=== PATIENT | male | born 1955 | race African-American/Black ===

== ENCOUNTER 2018-03-27 10:54 | Inpatient (IN) ==
[2018-03-27] MEDS ORDERED: ONDANSETRON ODT 4 MG TABLET PO STA (13:18)
[2018-03-27] MEDS ORDERED: ONDANSETRON ODT 4 MG TABLET PO ONE (13:21)
[2018-03-27 14:15] LABS: Apearance,Urine CLEAR (Clear); Bacteria,Urine Occasional /HPF (Few); Bilirubin,Urine Negative (Negative); Blood, Urine Small mg/dL (Negative); Glucose,Urine (UA) 50 mg/dL (Negative); Ketones,Urine Negative (Negative); Mucus,Urine Occasional /LPF (Occasional); Nitrite,Urine Negative (Negative); Protein,Urine 100 MG/DL; RBC,Urine 3 /HPF (0-4); Squamous Epithelial Cell,Urine Occasional /HPF (0-10); Urine Color Yellow (Yellow); Urine Specific Gravity 1.014 (1.001-1.035); Urine Urobilinogen < 2.0 EU/DL (0.2-1.0); WBC,Urine 3 /HPF (0-6)
[2018-03-27 14:17] LABS: Basophils # 0.1 10*3/uL (0.0-0.2); Basophils % 0.3 % (0.0-0.8); Eosinophils # 0.3 10*3/uL (0.0-0.87); Eosinophils % 1.4 % (0.00-10.9); Hematocrit 23.7 VOL% (42.0-52.0); Hemoglobin 8.1 GM/DL (14.0-18.0); Immature Granulocytes Absolute 0.22 #; Lymphocytes # 1.9 10*3/uL (1.4-4.0); Lymphocytes % 8.3 % (21.2-54.2); Mean Corpuscular HGB Conc 34.2 GM/DL (32-36); Mean Corpuscular Hemoglobin 30 PG (27-34); Mean Corpuscular Volume 88.1 FL (87-102); Mean Platelet Volume 10.4 FL (9.6-12.0); Monocytes # 1.4 10*3/uL (0.11-0.8); Platelet Count 426 T/CUMM (130-400); Red Blood Count 2.69 MC/CUMM (3.8-5.5); Red Cell Distribution Width 14.8 % (9.3-17.3); White Blood Count 22.8 T/CUMM (4-12)
[2018-03-27 14:36] LABS: Albumin 2.7 G/DL (3.4-5.0); Bilirubin,Total 0.4 MG/DL (0.2-1.0); Calcium 8.9 MG/DL (8.5-10.1); Osmolality,Calculated 323.8 MOS/KG (273-304); Potassium 4.7 MMOL/L (3.5-5.1); Total Protein 8.2 G/DL (6.4-8.3)
[2018-03-27 14:53] LABS: Band Neutrophils 1 % (0-10); Lymphocytes 8 % (20-55); Platelet Estimate Increased; Segmented Neutrophils 88 % (50-85); Total Cells Counted 100
[2018-03-27 14:54] LABS: Hypochromasia Slight
[2018-03-27 15:39] LABS: Barbiturates Screen,Urine Negative (Negative); Benzodiazepines Screen,Urine Negative (Negative); Cannabinoid Screen,Urine Negative (Negative); Opiate Screen,Urine Negative (Negative); Phencyclidine Screen,Urine Negative (Negative)
[2018-03-27] MEDS ORDERED: diphenhydrAMINE CAP 25 MG CAPSULE PO PRN (16:21)
[2018-03-27] MEDS ORDERED: DOCUSATE SODIUM 100 MG CAPSULE PO PRN (16:21)
[2018-03-27] MEDS ORDERED: SODIUM CHLORIDE 0.9% 1,000 ML IV SCH (16:30)
[2018-03-27 17:25] LABS: Risk Ratio 1.69; Thyroid Stimulating Hormone 1.46 uIU/ml (0.358-3.74); VLDL CHOLESTEROL 18.8 MG/DL
[2018-03-27] MEDS ORDERED: ONDANSETRON 4 MG/2 ML VIAL IV STA (17:31)
[2018-03-27] MEDS ORDERED: ONDANSETRON 4 MG/2 ML VIAL ONE (17:35)
[2018-03-27] MEDS ORDERED: DEXTROSE 50% 25 GM/50 ML VIAL IV PRN (18:53)
[2018-03-27] MEDS ORDERED: GLUCAGON 1 MG VIAL IM PRN (18:53)
[2018-03-27] MEDS: INSULIN REGULAR 100 UNIT/ML SUBCUT SCH (20:01)
[2018-03-27] MEDS: ONDANSETRON 4 MG/2 ML VIAL IV PRN (20:02)
[2018-03-27] MEDS: SODIUM BICARB INJ 100 MEQ in SODIUM CHLORIDE 0.45% 1,000 ML IV SCH (21:20)
[2018-03-27] MEDS: PIPERACILLIN/TAZOBACTAM 3,375 MG in SODIUM CHLORIDE 0.9% 100 ML IV SCH (21:20)
[2018-03-27] MEDS: MORPHINE 4 MG/1 ML VIAL IV PRN (21:25)
[2018-03-27 21:27] LABS: Apearance,Urine CLEAR (Clear); Bilirubin,Urine Negative (Negative); Blood, Urine Small mg/dL (Negative); Glucose,Urine (UA) 50 mg/dL (Negative); Ketones,Urine Negative (Negative); Nitrite,Urine Negative (Negative); Protein,Urine 100 MG/DL; RBC,Urine 3 /HPF (0-4); Squamous Epithelial Cell,Urine Occasional /HPF (0-10); Urine Color Yellow (Yellow); Urine Specific Gravity 1.013 (1.001-1.035); Urine Urobilinogen < 2.0 EU/DL (0.2-1.0); WBC,Urine 4 /HPF (0-6)
[2018-03-28 05:54] LABS: Basophils % 0.2 % (0.0-0.8); Eosinophils # 0.7 10*3/uL (0.0-0.87); Eosinophils % 2.9 % (0.00-10.9); Hematocrit 21.8 VOL% (42.0-52.0); Hemoglobin 7.5 GM/DL (14.0-18.0); Immature Granulocytes Absolute 0.22 #; Lymphocytes # 2.9 10*3/uL (1.4-4.0); Lymphocytes % 12.8 % (21.2-54.2); Mean Corpuscular HGB Conc 34.4 GM/DL (32-36); Mean Corpuscular Hemoglobin 30 PG (27-34); Mean Corpuscular Volume 86.2 FL (87-102); Mean Platelet Volume 10.4 FL (9.6-12.0); Monocytes # 1.3 10*3/uL (0.11-0.8); Monocytes % 5.8 % (1.7-12.7); Neutrophils # 17.7 10*3/uL (1.4-7.4); Neutrophils % 77.3 % (38.7-73.9); Platelet Count 376 T/CUMM (130-400); Red Blood Count 2.53 MC/CUMM (3.8-5.5); Red Cell Distribution Width 14.9 % (9.3-17.3); White Blood Count 22.9 T/CUMM (4-12)
[2018-03-28 06:18] LABS: Hypochromasia 1+; Platelet Estimate Adequate
[2018-03-28 06:30] LABS: Albumin 2.5 G/DL (3.4-5.0); Bilirubin,Total 0.4 MG/DL (0.2-1.0); Calcium 8.6 MG/DL (8.5-10.1); Osmolality,Calculated 323.7 MOS/KG (273-304); Potassium 4.1 MMOL/L (3.5-5.1); Total Protein 7.9 G/DL (6.4-8.3)
[2018-03-28] MEDS: ONDANSETRON 4 MG/2 ML VIAL IV PRN ×2 (07:35→20:24)
[2018-03-28] MEDS: INSULIN REGULAR 100 UNIT/ML SUBCUT SCH ×4 (10:18→20:24)
[2018-03-28] MEDS: PIPERACILLIN/TAZOBACTAM 3,375 MG in SODIUM CHLORIDE 0.9% 100 ML IV SCH (10:19)
[2018-03-28] MEDS: MORPHINE 4 MG/1 ML VIAL IV PRN ×2 (10:26→20:23)
[2018-03-28] MEDS: MEROPENEM 500 MG in SYRINGE 1 EACH IV SCH (10:27)
[2018-03-28] MEDS: PANTOPRAZOLE 40 MG VIAL IV SCH (10:27)
[2018-03-28] MEDS: SODIUM BICARB INJ 100 MEQ in SODIUM CHLORIDE 0.45% 1,000 ML IV SCH (12:51)
[2018-03-28 13:12] LABS: Calcium 8.3 MG/DL (8.5-10.1); Osmolality,Calculated 322.8 MOS/KG (273-304); Potassium 4.1 MMOL/L (3.5-5.1)
[2018-03-29 07:16] LABS: Basophils % 0.2 % (0.0-0.8); Eosinophils # 0.6 10*3/uL (0.0-0.87); Eosinophils % 3.5 % (0.00-10.9); Hematocrit 18.6 VOL% (42.0-52.0); Immature Granulocytes % 1.4 %; Immature Granulocytes Absolute 0.23 #; Lymphocytes # 2.9 10*3/uL (1.4-4.0); Lymphocytes % 17.7 % (21.2-54.2); Mean Corpuscular HGB Conc 34.9 GM/DL (32-36); Mean Corpuscular Hemoglobin 30 PG (27-34); Mean Corpuscular Volume 86.1 FL (87-102); Mean Platelet Volume 10.4 FL (9.6-12.0); Monocytes % 6.2 % (1.7-12.7); Neutrophils # 11.5 10*3/uL (1.4-7.4); Platelet Count 343 T/CUMM (130-400); Red Blood Count 2.16 MC/CUMM (3.8-5.5); Red Cell Distribution Width 15.1 % (9.3-17.3); White Blood Count 16.2 T/CUMM (4-12)
[2018-03-29 07:23] LABS: Hemoglobin 6.5 GM/DL (14.0-18.0)
[2018-03-29 07:43] LABS: Albumin 2.3 G/DL (3.4-5.0); Calcium 7.8 MG/DL (8.5-10.1); Osmolality,Calculated 319.5 MOS/KG (273-304); Potassium 3.8 MMOL/L (3.5-5.1)
[2018-03-29] MEDS ORDERED: EPOETIN ALFA 10,000 UNIT/1 ML VIAL SUBCUT ONE (07:57)
[2018-03-29] MEDS ORDERED: SODIUM CHLORIDE 0.9% 1,000 ML IV PRN (08:01)
[2018-03-29] MEDS: INSULIN REGULAR 100 UNIT/ML SUBCUT SCH ×4 (08:34→21:02)
[2018-03-29 08:35] LABS: Hepatitis A Ab IgM Quant 0.12 Index; Hepatitis A Ab IgM Result Negative (Negative); Hepatitis B Core IgM Quant 0.21 Index; Hepatitis B Core IgM Result Negative (Negative); Hepatitis B Surface Ag Quant < 0.10 Index; Hepatitis B Surface Ag Result Negative (Negative); Hepatitis C Virus Ab Quant 0.21 Index; Hepatitis C Virus Ab Result Negative (Negative)
[2018-03-29 08:37] LABS: Parathyroid Hormone Intact 2334.4 PG/ML (18.4-80.1)
[2018-03-29 08:53] LABS: % Iron Saturation 20.9 % (18-50); Ferritin 1198.7 ng/ml (26-388)
[2018-03-29] MEDS: PANTOPRAZOLE 40 MG VIAL IV SCH (09:59)
[2018-03-29] MEDS: MEROPENEM 500 MG in SYRINGE 1 EACH IV SCH (09:59)
[2018-03-29] MEDS: CALCIUM ACETATE 667 MG CAPSULE PO SCH ×3 (10:00→16:54)
[2018-03-29] MEDS: SODIUM BICARB INJ 100 MEQ in SODIUM CHLORIDE 0.45% 1,000 ML IV SCH ×2 (10:02→21:05)
[2018-03-29] MEDS: ONDANSETRON 4 MG/2 ML VIAL IV PRN ×2 (17:23→21:07)
[2018-03-29] MEDS: MORPHINE 4 MG/1 ML VIAL IV PRN (21:07)
[2018-03-30 05:44] LABS: Basophils # 0.1 10*3/uL (0.0-0.2); Basophils % 0.4 % (0.0-0.8); Eosinophils # 0.6 10*3/uL (0.0-0.87); Eosinophils % 3.7 % (0.00-10.9); Immature Granulocytes % 1.9 %; Immature Granulocytes Absolute 0.31 #; Lymphocytes % 18.8 % (21.2-54.2); Mean Corpuscular HGB Conc 33.3 GM/DL (32-36); Mean Corpuscular Hemoglobin 29 PG (27-34); Mean Platelet Volume 10.3 FL (9.6-12.0); Monocytes # 1.1 10*3/uL (0.11-0.8); Monocytes % 6.9 % (1.7-12.7); Neutrophils % 68.3 % (38.7-73.9); Platelet Count 288 T/CUMM (130-400); Red Blood Count 2.79 MC/CUMM (3.8-5.5); Red Cell Distribution Width 16.3 % (9.3-17.3); White Blood Count 16.2 T/CUMM (4-12)
[2018-03-30 06:23] LABS: Osmolality,Calculated 313.5 MOS/KG (273-304); Potassium 3.9 MMOL/L (3.5-5.1)
[2018-03-30] MEDS: INSULIN REGULAR 100 UNIT/ML SUBCUT SCH ×4 (07:45→20:44)
[2018-03-30] MEDS: PANTOPRAZOLE 40 MG VIAL IV SCH (10:11)
[2018-03-30] MEDS: ONDANSETRON 4 MG/2 ML VIAL IV PRN ×2 (10:13→18:44)
[2018-03-30] MEDS: CALCIUM ACETATE 667 MG CAPSULE PO SCH ×3 (10:14→18:40)
[2018-03-30] MEDS: MEROPENEM 500 MG in SYRINGE 1 EACH IV SCH (10:14)
[2018-03-30] MEDS: EPOETIN ALFA 10,000 UNIT/1 ML VIAL SUBCUT SCH (10:18)
[2018-03-31] MEDS: SODIUM BICARB INJ 100 MEQ in SODIUM CHLORIDE 0.45% 1,000 ML IV SCH (05:01)
[2018-03-31 07:50] LABS: Basophils % 0.2 % (0.0-0.8); Eosinophils # 0.7 10*3/uL (0.0-0.87); Eosinophils % 4.7 % (0.00-10.9); Hematocrit 23.7 VOL% (42.0-52.0); Hemoglobin 8.1 GM/DL (14.0-18.0); Immature Granulocytes % 3.2 %; Immature Granulocytes Absolute 0.46 #; Lymphocytes # 3.2 10*3/uL (1.4-4.0); Lymphocytes % 22.6 % (21.2-54.2); Mean Corpuscular HGB Conc 34.2 GM/DL (32-36); Mean Corpuscular Hemoglobin 29 PG (27-34); Mean Corpuscular Volume 84.9 FL (87-102); Mean Platelet Volume 10.4 FL (9.6-12.0); Monocytes # 1.3 10*3/uL (0.11-0.8); Monocytes % 8.9 % (1.7-12.7); NRBC # 0.03 10*3/uL; Neutrophils # 8.6 10*3/uL (1.4-7.4); Neutrophils % 60.4 % (38.7-73.9); Platelet Count 313 T/CUMM (130-400); Red Blood Count 2.79 MC/CUMM (3.8-5.5); Red Cell Distribution Width 16.5 % (9.3-17.3); White Blood Count 14.2 T/CUMM (4-12)
[2018-03-31 08:16] LABS: Calcium 7.8 MG/DL (8.5-10.1); Osmolality,Calculated 304.7 MOS/KG (273-304); Potassium 4.1 MMOL/L (3.5-5.1)
[2018-03-31] MEDS: INSULIN REGULAR 100 UNIT/ML SUBCUT SCH ×4 (09:37→22:09)
[2018-03-31] MEDS: PANTOPRAZOLE 40 MG VIAL IV SCH (09:38)
[2018-03-31] MEDS: MEROPENEM 500 MG in SYRINGE 1 EACH IV SCH (09:38)
[2018-03-31] MEDS: CALCIUM ACETATE 667 MG CAPSULE PO SCH ×3 (09:39→17:39)
[2018-03-31] MEDS: CALCIUM CARBONATE CHEW 500 MG TABLET PO PRN ×2 (14:12→17:41)
[2018-04-01] MEDS: INSULIN REGULAR 100 UNIT/ML SUBCUT SCH ×2 (07:13→13:14)
[2018-04-01 08:22] LABS: Calcium 7.5 MG/DL (8.5-10.1); Osmolality,Calculated 307.3 MOS/KG (273-304); Potassium 4.5 MMOL/L (3.5-5.1)
[2018-04-01] MEDS: CALCIUM ACETATE 667 MG CAPSULE PO SCH ×2 (09:30→11:50)
[2018-04-01] MEDS: PANTOPRAZOLE 40 MG VIAL IV SCH (09:30)
[2018-04-01] MEDS: MEROPENEM 500 MG in SYRINGE 1 EACH IV SCH (09:33)
[2018-04-01] MEDS: CALCIUM CARBONATE CHEW 500 MG TABLET PO PRN (10:26)
[2018-04-01] MEDS: EPOETIN ALFA 10,000 UNIT/1 ML VIAL SUBCUT SCH (11:51)
[2018-04-01 12:47] VITALS: BP 117/71
[2018-04-01] MEDS ORDERED: SODIUM BICARBONATE 650 MG TABLET PO SCH (21:00)
== END 2018-04-01 15:29 | disposition home or self-care (01) | DRG 460 ==
LOC: N.ED 10:54 → SUATTDRO 16:19 → N.EDINP 16:19 → N.5E 17:27
PROVIDERS: ADMIT Internal Medicine Cardiovascular Disease; ATTEND Internal Medicine

== ENCOUNTER 2018-04-03 18:00 | Inpatient (IN) ==
[2018-04-03] MEDS ORDERED: METOCLOPRAMIDE 10 MG/2 ML VIAL IV STA (18:41)
[2018-04-03] MEDS ORDERED: ONDANSETRON 4 MG/2 ML VIAL IV STA (18:41)
[2018-04-03] MEDS ORDERED: PANTOPRAZOLE 40 MG VIAL IV STA (18:41)
[2018-04-03] MEDS ORDERED: ONDANSETRON 4 MG/2 ML VIAL ONE (18:50)
[2018-04-03] MEDS ORDERED: METOCLOPRAMIDE 10 MG/2 ML VIAL ONE (18:50)
[2018-04-03] MEDS ORDERED: PANTOPRAZOLE 40 MG VIAL IV ONE (18:50)
[2018-04-03 19:23] LABS: Basophils # 0.1 10*3/uL (0.0-0.2); Basophils % 0.4 % (0.0-0.8); Eosinophils # 0.6 10*3/uL (0.0-0.87); Eosinophils % 4.1 % (0.00-10.9); Hematocrit 30.1 VOL% (42.0-52.0); Hemoglobin 9.8 GM/DL (14.0-18.0); Immature Granulocytes % 1.4 %; Lymphocytes # 2.2 10*3/uL (1.4-4.0); Lymphocytes % 15.2 % (21.2-54.2); Mean Corpuscular HGB Conc 32.6 GM/DL (32-36); Mean Corpuscular Hemoglobin 29 PG (27-34); Mean Corpuscular Volume 90.4 FL (87-102); Mean Platelet Volume 9.9 FL (9.6-12.0); Monocytes # 1.2 10*3/uL (0.11-0.8); Monocytes % 8.1 % (1.7-12.7); Neutrophils # 10.5 10*3/uL (1.4-7.4); Neutrophils % 70.8 % (38.7-73.9); Platelet Count 602 T/CUMM (130-400); Red Blood Count 3.33 MC/CUMM (3.8-5.5); Red Cell Distribution Width 17.9 % (9.3-17.3); White Blood Count 14.8 T/CUMM (4-12)
[2018-04-03 19:35] LABS: Lactic Acid 0.9 MMOL/L (0.4-2.0)
[2018-04-03 19:36] LABS: Albumin 2.9 G/DL (3.4-5.0); Bilirubin,Total 0.8 MG/DL (0.2-1.0); Calcium 9.1 MG/DL (8.5-10.1); Osmolality,Calculated 303.3 MOS/KG (273-304); Potassium 4.5 MMOL/L (3.5-5.1); Total Protein 8.4 G/DL (6.4-8.3)
[2018-04-03] MEDS ORDERED: SODIUM CHLORIDE 0.9% 2,000 ML IV STA (19:49)
[2018-04-03 20:01] LABS: Apearance,Urine CLEAR (Clear); Bilirubin,Urine Negative (Negative); Blood, Urine Small mg/dL (Negative); Glucose,Urine (UA) 150 mg/dL (Negative); Ketones,Urine Negative (Negative); Nitrite,Urine Negative (Negative); Protein,Urine 100 MG/DL; RBC,Urine 1 /HPF (0-4); Squamous Epithelial Cell,Urine Occasional /HPF (0-10); Urine Color Straw (Yellow); Urine Specific Gravity 1.012 (1.001-1.035); Urine Urobilinogen < 2.0 EU/DL (0.2-1.0); WBC,Urine 1 /HPF (0-6)
[2018-04-03] MEDS ORDERED: BISACODYL 5 MG TABLET PO PRN (21:18)
[2018-04-03] MEDS ORDERED: MORPHINE 4 MG/1 ML VIAL IV PRN (21:18)
[2018-04-03] MEDS ORDERED: ENOXAPARIN 30 MG/0.3 ML SYRINGE SUBCUT SCH (21:30)
[2018-04-03] MEDS: SODIUM BICARBONATE 650 MG TABLET PO SCH (21:45)
[2018-04-03] MEDS: PIPERACILLIN/TAZOBACTAM 3,375 MG in SODIUM CHLORIDE 0.9% 100 ML IV SCH (21:48)
[2018-04-03] MEDS: SODIUM CHLORIDE 0.9% 1,000 ML IV SCH (21:50)
[2018-04-03] MEDS: ZALEPLON 5 MG CAPSULE PO PRN (22:08)
[2018-04-04 04:53] LABS: Basophils # 0.1 10*3/uL (0.0-0.2); Basophils % 0.4 % (0.0-0.8); Eosinophils # 0.7 10*3/uL (0.0-0.87); Eosinophils % 5.4 % (0.00-10.9); Hematocrit 25.2 VOL% (42.0-52.0); Hemoglobin 7.8 GM/DL (14.0-18.0); Immature Granulocytes Absolute 0.13 #; Lymphocytes # 2.9 10*3/uL (1.4-4.0); Lymphocytes % 22.4 % (21.2-54.2); Mean Corpuscular Hemoglobin 29 PG (27-34); Mean Corpuscular Volume 93.7 FL (87-102); Monocytes # 1.3 10*3/uL (0.11-0.8); Monocytes % 10.2 % (1.7-12.7); Neutrophils # 7.8 10*3/uL (1.4-7.4); Neutrophils % 60.6 % (38.7-73.9); Platelet Count 489 T/CUMM (130-400); Red Blood Count 2.69 MC/CUMM (3.8-5.5); Red Cell Distribution Width 17.8 % (9.3-17.3); White Blood Count 12.9 T/CUMM (4-12)
[2018-04-04 05:23] LABS: Albumin 1.9 G/DL (3.4-5.0); Bilirubin,Total 0.4 MG/DL (0.2-1.0); Calcium 7.9 MG/DL (8.5-10.1); Osmolality,Calculated 304.8 MOS/KG (273-304); Potassium 4.8 MMOL/L (3.5-5.1); Total Protein 6.4 G/DL (6.4-8.3)
[2018-04-04] MEDS ORDERED: PANTOPRAZOLE 40 MG TABLET PO SCH (09:00)
[2018-04-04] MEDS: PIPERACILLIN/TAZOBACTAM 3,375 MG in SODIUM CHLORIDE 0.9% 100 ML IV SCH ×2 (09:40→21:17)
[2018-04-04] MEDS: SODIUM BICARBONATE 650 MG TABLET PO SCH ×2 (09:40→21:16)
[2018-04-04] MEDS: CALCIUM ACETATE 667 MG CAPSULE PO SCH ×3 (09:41→17:09)
[2018-04-04] MEDS: SODIUM CHLORIDE 0.9% 1,000 ML IV SCH ×2 (09:41→17:08)
[2018-04-04 12:23] LABS: INR 1.1; PT Patient Result 11.8 SECS; Partial Thromboplastin Time 32.2 SECS (0-40)
[2018-04-04] MEDS: PANTOPRAZOLE 40 MG TABLET PO SCH (21:16)
[2018-04-04] MEDS: ZALEPLON 5 MG CAPSULE PO PRN (21:16)
[2018-04-05] MEDS: SODIUM CHLORIDE 0.9% 1,000 ML IV SCH ×4 (06:02→19:20)
[2018-04-05 06:18] LABS: Basophils # 0.1 10*3/uL (0.0-0.2); Basophils % 0.4 % (0.0-0.8); Eosinophils # 0.8 10*3/uL (0.0-0.87); Eosinophils % 6.6 % (0.00-10.9); Hematocrit 25.5 VOL% (42.0-52.0); Hemoglobin 8.1 GM/DL (14.0-18.0); Immature Granulocytes % 0.9 %; Lymphocytes # 3.2 10*3/uL (1.4-4.0); Lymphocytes % 28.4 % (21.2-54.2); Mean Corpuscular HGB Conc 31.8 GM/DL (32-36); Mean Corpuscular Hemoglobin 30 PG (27-34); Mean Corpuscular Volume 92.7 FL (87-102); Mean Platelet Volume 9.9 FL (9.6-12.0); Monocytes # 1.1 10*3/uL (0.11-0.8); Monocytes % 9.4 % (1.7-12.7); Neutrophils # 6.1 10*3/uL (1.4-7.4); Neutrophils % 54.3 % (38.7-73.9); Platelet Count 506 T/CUMM (130-400); Red Blood Count 2.75 MC/CUMM (3.8-5.5); Red Cell Distribution Width 18.6 % (9.3-17.3); White Blood Count 11.3 T/CUMM (4-12)
[2018-04-05] MEDS ORDERED: PROPOFOL 200 MG/20 ML VIAL IV ONE (09:11)
[2018-04-05] MEDS ORDERED: ETOMIDATE 40 MG/20 ML VIAL IV ONE (09:11)
[2018-04-05] MEDS: CALCIUM ACETATE 667 MG CAPSULE PO SCH ×4 (09:28→17:40)
[2018-04-05] MEDS: PIPERACILLIN/TAZOBACTAM 3,375 MG in SODIUM CHLORIDE 0.9% 100 ML IV SCH (09:51)
[2018-04-05] MEDS: PANTOPRAZOLE 40 MG TABLET PO SCH ×2 (09:52→21:38)
[2018-04-05] MEDS: CLARITHROMYCIN 500 MG TABLET PO SCH ×2 (09:52→21:38)
[2018-04-05] MEDS: SODIUM BICARBONATE 650 MG TABLET PO SCH ×2 (09:52→21:38)
[2018-04-05] MEDS: AMOXICILLIN 500 MG CAPSULE PO SCH (12:10)
[2018-04-05] MEDS: ZALEPLON 5 MG CAPSULE PO PRN (21:38)
[2018-04-06] MEDS: SODIUM CHLORIDE 0.9% 1,000 ML IV SCH ×4 (03:17→21:44)
[2018-04-06 05:41] LABS: Basophils % 0.4 % (0.0-0.8); Eosinophils # 0.6 10*3/uL (0.0-0.87); Eosinophils % 5.9 % (0.00-10.9); Hemoglobin 7.5 GM/DL (14.0-18.0); Immature Granulocytes % 0.6 %; Immature Granulocytes Absolute 0.06 #; Lymphocytes # 2.5 10*3/uL (1.4-4.0); Mean Corpuscular HGB Conc 31.3 GM/DL (32-36); Mean Corpuscular Hemoglobin 30 PG (27-34); Mean Corpuscular Volume 94.9 FL (87-102); Mean Platelet Volume 9.7 FL (9.6-12.0); Monocytes # 0.9 10*3/uL (0.11-0.8); Monocytes % 8.5 % (1.7-12.7); Neutrophils % 59.6 % (38.7-73.9); Platelet Count 513 T/CUMM (130-400); Red Blood Count 2.53 MC/CUMM (3.8-5.5); Red Cell Distribution Width 18.8 % (9.3-17.3); White Blood Count 10.1 T/CUMM (4-12)
[2018-04-06 06:05] LABS: Calcium 7.2 MG/DL (8.5-10.1); Osmolality,Calculated 299.1 MOS/KG (273-304); Potassium 4.6 MMOL/L (3.5-5.1)
[2018-04-06] MEDS ORDERED: AMOXICILLIN 500 MG CAPSULE PO SCH (09:00)
[2018-04-06] MEDS: CALCIUM ACETATE 667 MG CAPSULE PO SCH ×3 (11:02→18:08)
[2018-04-06] MEDS: PANTOPRAZOLE 40 MG TABLET PO SCH ×2 (11:03→20:33)
[2018-04-06] MEDS: SODIUM BICARBONATE 650 MG TABLET PO SCH ×2 (11:03→20:32)
[2018-04-06] MEDS: AMOXICILLIN 500 MG CAPSULE PO SCH (11:03)
[2018-04-06] MEDS: CLARITHROMYCIN 500 MG TABLET PO SCH ×2 (11:03→20:33)
[2018-04-06] MEDS: ZALEPLON 5 MG CAPSULE PO PRN (20:32)
[2018-04-07] MEDS: SODIUM CHLORIDE 0.9% 1,000 ML IV SCH ×2 (06:10→19:51)
[2018-04-07 07:00] LABS: Basophils # 0.1 10*3/uL (0.0-0.2); Basophils % 0.6 % (0.0-0.8); Eosinophils # 0.6 10*3/uL (0.0-0.87); Eosinophils % 5.3 % (0.00-10.9); Hematocrit 25.4 VOL% (42.0-52.0); Hemoglobin 7.7 GM/DL (14.0-18.0); Immature Granulocytes % 0.8 %; Immature Granulocytes Absolute 0.09 #; Lymphocytes % 27.9 % (21.2-54.2); Mean Corpuscular HGB Conc 30.3 GM/DL (32-36); Mean Corpuscular Hemoglobin 29 PG (27-34); Mean Corpuscular Volume 96.2 FL (87-102); Mean Platelet Volume 9.9 FL (9.6-12.0); Monocytes % 8.8 % (1.7-12.7); Neutrophils # 6.1 10*3/uL (1.4-7.4); Neutrophils % 56.6 % (38.7-73.9); Platelet Count 487 T/CUMM (130-400); Red Blood Count 2.64 MC/CUMM (3.8-5.5); Red Cell Distribution Width 18.5 % (9.3-17.3); White Blood Count 10.8 T/CUMM (4-12)
[2018-04-07] MEDS: ONDANSETRON 4 MG/2 ML VIAL IV PRN (10:22)
[2018-04-07] MEDS: CALCIUM ACETATE 667 MG CAPSULE PO SCH ×3 (11:40→16:55)
[2018-04-07] MEDS: PANTOPRAZOLE 40 MG TABLET PO SCH ×2 (11:44→20:31)
[2018-04-07] MEDS: SODIUM BICARBONATE 650 MG TABLET PO SCH ×2 (11:44→20:30)
[2018-04-07] MEDS: AMOXICILLIN 500 MG CAPSULE PO SCH (11:44)
[2018-04-07] MEDS: CLARITHROMYCIN 500 MG TABLET PO SCH (11:44)
[2018-04-07] MEDS: SODIUM BICARB INJ 150 MEQ in DEXTROSE 5% 1,000 ML IV SCH (17:09)
[2018-04-07] MEDS: ZALEPLON 5 MG CAPSULE PO PRN (20:32)
[2018-04-08] MEDS: SODIUM BICARB INJ 150 MEQ in DEXTROSE 5% 1,000 ML IV SCH ×2 (02:17→11:50)
[2018-04-08 05:24] LABS: Basophils # 0.1 10*3/uL (0.0-0.2); Basophils % 0.5 % (0.0-0.8); Eosinophils # 0.6 10*3/uL (0.0-0.87); Eosinophils % 5.7 % (0.00-10.9); Hemoglobin 7.7 GM/DL (14.0-18.0); Immature Granulocytes % 0.7 %; Immature Granulocytes Absolute 0.07 #; Lymphocytes # 2.6 10*3/uL (1.4-4.0); Lymphocytes % 26.4 % (21.2-54.2); Mean Corpuscular HGB Conc 32.1 GM/DL (32-36); Mean Corpuscular Hemoglobin 30 PG (27-34); Mean Platelet Volume 9.7 FL (9.6-12.0); Monocytes # 0.9 10*3/uL (0.11-0.8); Monocytes % 8.6 % (1.7-12.7); Neutrophils # 5.7 10*3/uL (1.4-7.4); Neutrophils % 58.1 % (38.7-73.9); Platelet Count 439 T/CUMM (130-400); Red Blood Count 2.61 MC/CUMM (3.8-5.5); Red Cell Distribution Width 18.2 % (9.3-17.3); White Blood Count 9.9 T/CUMM (4-12)
[2018-04-08 05:48] LABS: Potassium 4.4 MMOL/L (3.5-5.1)
[2018-04-08] MEDS: CALCIUM ACETATE 667 MG CAPSULE PO SCH ×3 (08:11→16:35)
[2018-04-08] MEDS: SODIUM BICARBONATE 650 MG TABLET PO SCH ×2 (08:11→20:25)
[2018-04-08] MEDS: PANTOPRAZOLE 40 MG TABLET PO SCH ×2 (08:11→20:25)
[2018-04-08] MEDS: ONDANSETRON 4 MG/2 ML VIAL IV PRN (19:10)
[2018-04-08] MEDS: ZALEPLON 5 MG CAPSULE PO PRN (20:27)
[2018-04-08] MEDS: CHLORHEXIDINE 0.12% ORAL RINSE 60 ML BOTTLE SWISH/SPIT SCH (20:27)
[2018-04-09 06:38] LABS: Osmolality,Calculated 288.1 MOS/KG (273-304); Potassium 4.5 MMOL/L (3.5-5.1)
[2018-04-09] MEDS: CHLORHEXIDINE 0.12% ORAL RINSE 60 ML BOTTLE SWISH/SPIT SCH ×2 (09:01→20:55)
[2018-04-09] MEDS: CALCIUM ACETATE 667 MG CAPSULE PO SCH ×3 (09:02→16:57)
[2018-04-09] MEDS: PANTOPRAZOLE 40 MG TABLET PO SCH ×2 (09:02→20:54)
[2018-04-09] MEDS: SODIUM BICARBONATE 650 MG TABLET PO SCH ×2 (09:02→20:54)
[2018-04-09] MEDS: ONDANSETRON 4 MG/2 ML VIAL IV PRN (17:50)
[2018-04-09] MEDS: ZALEPLON 5 MG CAPSULE PO PRN (20:55)
[2018-04-10 06:50] LABS: Basophils # 0.1 10*3/uL (0.0-0.2); Basophils % 0.9 % (0.0-0.8); Eosinophils # 0.5 10*3/uL (0.0-0.87); Eosinophils % 5.5 % (0.00-10.9); Hematocrit 25.9 VOL% (42.0-52.0); Hemoglobin 8.2 GM/DL (14.0-18.0); Immature Granulocytes % 0.3 %; Immature Granulocytes Absolute 0.03 #; Lymphocytes # 2.5 10*3/uL (1.4-4.0); Lymphocytes % 27.6 % (21.2-54.2); Mean Corpuscular HGB Conc 31.7 GM/DL (32-36); Mean Corpuscular Hemoglobin 30 PG (27-34); Mean Corpuscular Volume 93.5 FL (87-102); Mean Platelet Volume 9.9 FL (9.6-12.0); Monocytes # 1.1 10*3/uL (0.11-0.8); Monocytes % 11.4 % (1.7-12.7); Neutrophils % 54.3 % (38.7-73.9); Platelet Count 390 T/CUMM (130-400); Red Blood Count 2.77 MC/CUMM (3.8-5.5); Red Cell Distribution Width 17.8 % (9.3-17.3); White Blood Count 9.2 T/CUMM (4-12)
[2018-04-10 07:02] LABS: Albumin 2.2 G/DL (3.4-5.0); Bilirubin,Total 0.5 MG/DL (0.2-1.0); Calcium 7.7 MG/DL (8.5-10.1); Osmolality,Calculated 293.8 MOS/KG (273-304); Potassium 4.6 MMOL/L (3.5-5.1); Total Protein 6.6 G/DL (6.4-8.3)
[2018-04-10] MEDS: CALCIUM ACETATE 667 MG CAPSULE PO SCH ×3 (07:39→17:00)
[2018-04-10] MEDS ORDERED: LIDOCAINE 1%/EPI INJ 20 ML VIAL ONE (11:37)
[2018-04-10] MEDS ORDERED: CHLORHEXIDINE 0.12% ORAL RINSE 60 ML BOTTLE SWISH/SPIT ONE (11:37)
[2018-04-10] MEDS ORDERED: fentaNYL 100 MCG/2 ML VIAL ONE (13:33)
[2018-04-10] MEDS ORDERED: SEVOFLURANE 1 UNIT/15 MINUTE INH ONE (13:33)
[2018-04-10] MEDS ORDERED: ONDANSETRON 4 MG/2 ML VIAL ONE ×2 (13:33→13:41)
[2018-04-10] MEDS ORDERED: MIDAZOLAM 2 MG/2 ML VIAL ONE (13:33)
[2018-04-10] MEDS ORDERED: PROPOFOL 200 MG/20 ML VIAL IV ONE (13:33)
[2018-04-10] MEDS ORDERED: PHENYLEPHRINE 0.5% NASAL SPRAY 15 ML BOTTLE BOTH NARES ONE (13:33)
[2018-04-10] MEDS ORDERED: LABETALOL 20 MG/4 ML SYRINGE IV ONE (13:33)
[2018-04-10] MEDS ORDERED: NEOSTIGMINE 10 MG/10 ML VIAL ONE (13:34)
[2018-04-10] MEDS ORDERED: PHENYLEPHRINE 10 MG/1 ML VIAL IV ONE (13:34)
[2018-04-10] MEDS ORDERED: SODIUM CHLORIDE 0.9% 100 ML IV ONE (13:34)
[2018-04-10] MEDS ORDERED: SODIUM CHLORIDE 0.9% 1,000 ML IV ONE (13:34)
[2018-04-10] MEDS ORDERED: GLYCOPYRROLATE 0.4 MG/2 ML VIAL ONE (13:34)
[2018-04-10] MEDS ORDERED: ROCURONIUM 100 MG/10 ML VIAL IV ONE (13:34)
[2018-04-10] MEDS ORDERED: MEPERIDINE 25 MG/1 ML VIAL ONE (13:41)
[2018-04-10] MEDS: SODIUM BICARBONATE 650 MG TABLET PO SCH ×2 (13:42→20:05)
[2018-04-10] MEDS: CHLORHEXIDINE 0.12% ORAL RINSE 60 ML BOTTLE SWISH/SPIT SCH ×2 (13:42→20:04)
[2018-04-10] MEDS: PANTOPRAZOLE 40 MG TABLET PO SCH ×2 (13:42→20:03)
[2018-04-10] MEDS ORDERED: MEPERIDINE 25 MG/1 ML VIAL IV PRN (13:45)
[2018-04-10] MEDS ORDERED: ONDANSETRON 4 MG/2 ML VIAL IV PRN (13:45)
[2018-04-10] MEDS: ZALEPLON 5 MG CAPSULE PO PRN (19:53)
[2018-04-11 07:57] VITALS: BP 163/95
[2018-04-11] MEDS: CHLORHEXIDINE 0.12% ORAL RINSE 60 ML BOTTLE SWISH/SPIT SCH (08:21)
[2018-04-11] MEDS: PANTOPRAZOLE 40 MG TABLET PO SCH (08:21)
[2018-04-11] MEDS: CALCIUM ACETATE 667 MG CAPSULE PO SCH (08:21)
[2018-04-11] MEDS: SODIUM BICARBONATE 650 MG TABLET PO SCH (08:21)
== END 2018-04-11 11:30 | disposition home or self-care (01) | DRG 282 ==
LOC: N.ED 18:00 → N.EDINP 20:18 → SUATTDRO 20:18 → N.3E 21:17
PROVIDERS: ADMIT Family Medicine; ATTEND Internal Medicine